=== PATIENT | male | born 1965 | race Caucasian/White ===

== ENCOUNTER 2022-10-21 17:38 | Emergency (ER) | payer OTHER, MEDICAID ==
[~2022-10-21] VITALS: Ht 182.9 cm; Wt 104.3 kg
[2022-10-21 17:50] VITALS: BP 107/70
--- NOTE | 2022-10-21 17:51 | NUR ---
BIBA BLS TO ER BED 2
[2022-10-21 18:17] LABS: BASOPHILS % (AUTO) 0.4 % (0.0-2.0); EOSINOPHILS # (AUTO) 0.2 K/uL (0-0.4); HEMATOCRIT 37.4 % (36-52); HEMOGLOBIN 12.2 g/dL (12.0-18.0); LYMPHOCYTES # (AUTO) 1.7 K/uL (2.0-11.5); LYMPHOCYTES % (AUTO) 21.3 % (20.5-51.1); MEAN CORPUSCULAR HEMOGLOBIN 23 pg (27-31); MEAN CORPUSCULAR HGB CONC 33 g/dL (33-37); MEAN CORPUSCULAR VOLUME 71.2 fL (80-94); MONOCYTES # (AUTO) 0.7 K/uL (0.8-1.0); MONOCYTES % (AUTO) 8.4 % (1.7-9.3); NEUTROPHILS # (AUTO) 5.4 K/uL (1.8-7.7); NEUTROPHILS % (AUTO) 66.9 % (42.2-75.2); PLATELET COUNT (AUTO) 262 K/uL (140-450); RED BLOOD CELL COUNT(AUTO) 5.25 MIL/uL (4.20-6.10)
[2022-10-21 18:40] LABS: ALBUMIN 3.3 g/dL (3.4-5.0); CARBON DIOXIDE 28.8 mmol/L (21-32); CREATININE 0.8 mg/dL (0.6-1.3); POTASSIUM 3.8 mmol/L (3.5-5.1); TOTAL BILIRUBIN 0.4 mg/dL (0.0-1.0)
[2022-10-21] MEDS ORDERED: ONDANSETRON 4 MG/2 ML VIAL IVP ONE (18:50)
[2022-10-21] MEDS ORDERED: MORPHINE SULFATE 4 MG/ML SYR IVP ONE (18:50)
--- NOTE | 2022-10-21 19:04 | NUR ---
Radiology at bedside for XRAY
--- NOTE | 2022-10-21 19:26 | NUR ---
Pt report given to ENRIQUE Valencia. Transfer of care at this time.
[2022-10-21 19:31] VITALS: BP 101/56
--- NOTE | 2022-10-21 19:37 | NUR ---
PT TO CT
--- NOTE | 2022-10-21 20:21 | NUR ---
PT BACK FROM CT. PT RESTING IN BED ON BEDSIDE IT AUDITOR. PAIN LEVEL 5/10 RLQ PAIN. DENIES FEVER SOB V/D. PT IS A&OX4. RESP EVEN AND UNLABORED. BED AT LOWEST POSITION SIDE RAILS UP X2. HOB ELEVATED. NKDA
--- NOTE | 2022-10-21 22:13 | NUR ---
Patient discharged with v/s stable. Written and verbal after care instructions given and explained. Patient verbalized understanding. Ambulatory with to group home. All questions addressed prior to discharge. Advised to follow up with PMD.
== END 2022-10-21 22:13 ==
LOC: MED 17:38
DX: R10.9 Unspecified abdominal pain (principal); R07.89 Other chest pain
CPT/HCPCS: 36415; 71045; 74176; 80053; 83690; 84484; 85025; 96374; 96375; 99285; J2270; J2405; Q0092